=== PATIENT | female | born 1955 | race Caucasian/White ===

== ENCOUNTER 2018-01-29 14:53 | Emergency (ER) | payer SELFPAY ==
[~2018-01-29] VITALS: Wt 58.9 kg
[2018-01-29 15:00] VITALS: BP 195/95; PULSE 95; TEMP 99
[2018-01-29] MEDS ORDERED: ZOVIRAX800 MG PO (15:20)
== END 2018-01-29 15:51 | disposition home or self-care (01) ==
LOC: COL.ER 14:53
DX: B02.9 Zoster without complications (principal); F32.9 Major depressive disorder, single episode, unspecified; F90.9 Attention-deficit hyperactivity disorder, unspecified type; E20.9 Hypoparathyroidism, unspecified; F17.210 Nicotine dependence, cigarettes, uncomplicated